=== PATIENT | male | born 1945 | race Caucasian/White ===

== ENCOUNTER → 2020-11-02 10:48 | Outpatient (BNVA) | payer MEDICARE, SELFPAY | PROVIDERS: PCP Family Medicine; Visit Provider Urology | DX: N40.1 Benign prostatic hyperplasia with lower urinary tract symptoms (principal); N28.1 Cyst of kidney, acquired; N13.8 Other obstructive and reflux uropathy; N52.01 Erectile 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; R33.9 Retention of urine, unspecified | CPT/HCPCS: 81002; 99212 ==

== ENCOUNTER 2020-11-10 10:59 | Outpatient (REF) | payer MEDICARE, SELFPAY ==
--- NOTE | ~2020-11-10 | US_ITS ---
EXAMINATION: US RETROPERITONEAL LIMITED (RENAL ONLY) CLINICAL INFORMATION: Calculus of kidney. COMPARISON: None TECHNIQUE: Real-time imaging of the kidneys. FINDINGS: RIGHT KIDNEY: 13.0 x 6.1 x 4.2 cm (SAG x AP x TRV). The kidney is normal in size, contour, and echogenicity. Renal cortical thickness is normal. No renal calculi or hydronephrosis. There is an anechoic cyst in lower pole measuring 6.8 x 7.8 x 7.8 cm. LEFT KIDNEY: 13.5 x 6.3 x 5.0 cm (SAG x AP x TRV). The kidney is normal in size, contour, and echogenicity. Renal cortical thickness is normal. No calculi or focal parenchymal lesions. No hydronephrosis. US/US renal BI IMPRESSION: Anechoic cyst lower pole right kidney. There are no echogenic stones, cysts or hydronephrosis in either kidney.
== END 2020-11-10 11:00 | disposition home or self-care (01) ==
LOC: HO.US 10:59
PROVIDERS: Visit Provider Urology
DX: N28.1 Cyst of kidney, acquired (principal); N20.0 Calculus of kidney
CPT/HCPCS: 76775

== ENCOUNTER → 2020-12-06 08:52 | Outpatient (BNVA) | payer MEDICARE, SELFPAY | PROVIDERS: PCP Family Medicine; Visit Provider Urology | DX: R39.15 Urgency of urination (principal); N28.1 Cyst of kidney, acquired; N40.1 Benign prostatic hyperplasia with lower urinary tract symptoms; R33.9 Retention of urine, unspecified | CPT/HCPCS: 52000; 99212 ==

== ENCOUNTER → 2021-08-17 11:37 | Outpatient (BNVA) | payer MEDICARE, SELFPAY | PROVIDERS: PCP Family Medicine; Visit Provider Urology | DX: N40.1 Benign prostatic hyperplasia with lower urinary tract symptoms (principal); N13.8 Other obstructive and reflux uropathy; N28.1 Cyst of kidney, acquired; N52.01 Erectile 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; R39.15 Urgency of urination; L29.1 Pruritus scroti | CPT/HCPCS: 51798; 99212 ==

== ENCOUNTER 2022-08-06 11:08 | Outpatient (REF) | payer MEDICARE, SELFPAY ==
--- NOTE | ~2022-08-06 | US_ITS ---
EXAMINATION: US RETROPERITONEAL LIMITED (RENAL ONLY) CLINICAL INFORMATION: Cyst of kidney, acquired. COMPARISON: Ultrasound retroperitoneal limited (renal only) 11/10/2020. TECHNIQUE: Real-time imaging of the kidneys. FINDINGS: RIGHT KIDNEY: 12.2 x 5.6 x 5.0 cm (SAG x AP x TRV). The kidney is normal in size, contour, and echogenicity. Renal cortical thickness is normal. No hydronephrosis. Redemonstration of a 7.4 x 5.8 x 8.1 cm cystic lesion in the lower pole, previously 7.8 x 6.8 x 7.8 on 11/10/2020. This lesion demonstrates peripheral nodularities that are for the vast majority hyperechoic, favoring to represent the presence of calcifications. There are also some thickened peripheral septations. LEFT KIDNEY: 12.9 x 5.7 x 5.1 cm (SAG x AP x TRV). The kidney is normal in size, contour, and echogenicity. Renal cortical thickness is normal. No focal parenchymal lesions or hydronephrosis. There is a 0.2 cm nonobstructive calculus in the lower pole. US/US renal BI IMPRESSION: 1. Redemonstration of a 8.1 cm cystic lesion in the lower pole of the right kidney with peripheral calcifications and thickened septations. This lesion is indeterminant and further characterization with a dynamic abdominal MRI is recommended to evaluate for the presence of solid/enhancing components. 2. Nonobstructive 0.2 cm calculus in the lower pole of the left kidney.
== END 2022-08-06 11:09 | disposition home or self-care (01) ==
LOC: HO.US 11:08
PROVIDERS: Visit Provider Urology
DX: N28.1 Cyst of kidney, acquired (principal)
CPT/HCPCS: 76775

== ENCOUNTER → 2022-08-29 08:47 | Outpatient (BNVA) | payer MEDICARE, SELFPAY | PROVIDERS: PCP Family Medicine; Visit Provider Urology | DX: N40.1 Benign prostatic hyperplasia with lower urinary tract symptoms (principal); N13.8 Other obstructive and reflux uropathy; R39.15 Urgency of urination; N52.01 Erectile 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; N28.1 Cyst of kidney, acquired | CPT/HCPCS: 51798; 99212 ==

== ENCOUNTER 2023-05-10 13:53 | Outpatient (AMB) | payer MEDICARE, SELFPAY ==
--- NOTE | 2023-05-10 13:55 | A.OFFVIS_ITS ---
Intake Intake Visit Reasons: 6m follow up Intake Note: Patient is present for Follow Up Urology Med: Dutasteride, Sildenafil, Tolterodine Antibiotic Allergy:none Blood Thinner: None Pharmacy: [facility] PVR: 0 Allergies No Known Allergies Allergy (Verified 05/10/23 13:58) Medication List - Last Reconciled 05/10/23 by Hany Hayes MD atropine 1% 1 drp ophthalmic (eye) BID bisoprolol-hydrochlorothiazide 2.5-6.25 mg 1 tab PO QAM brimonidine-timolol 0.2-0.5 % drps ophthalmic (eye) clotrimazole-betamethasone 1-0.05 % 1 appl topical BID 2 weeks dutasteride 0.5 mg PO DAILY ipratropium bromide 2 sprays intranasal BID ketorolac 0.5% 1 drp ophthalmic-Right TID moxifloxacin 0.5% 1 drp ophthalmic (eye) TID prednisolone acetate 1% 1 drp ophthalmic-Right TID sildenafil 100 mg PO ONCE PRN 30 days tolterodine ER 2 mg PO DAILY 90 days HPI HPI Comments History of Present Illness Details Mckay Frank is a very pleasant male. He is a patient of Dr. Horvath. They are seen in the office today for the following urologic conditions. - lower urinary tract symptoms - overactive bladder dry - scrotal itching Continue therapy tolterodine 2 mg daily with dutasteride - stable bladder per formance Erectile dysfunction Viagra prescription provided Stable right renal cyst on ultrasound Lower Urinary Tract Symptoms: Current visit is for further evaluation of, lower urinary tract symptoms, predominate obstructive symptoms. Current treatment includes medication none Prior treatments include medication, alpha blockers, antimuscarinics - no long term care administrator impact , myrbetriq/mirabegron - not helpful, prior 5 AR dutasteride - 3m antibiotic suppression was beneficial 11/24 Prostate Symptom Score Moderate (9-19), Bother 3. Symptoms include incomplete emptying, weak stream, nocturia (>2), and are stable. Results from testing include cystoscopy high riding bladder neck (median bar) May 2016 large bladder capacity renal/bladder us Yes 7cm renal cyst complex PVR 255 high pvr on antimuscarinic Prior Prostate Score mild. PSA 03/26 0.2 Prostate volume < 30 gm. Associated conditions CAD No CVA No diabetes No elevated PSA No erectile dysfunction Yes Testing at next visit will include Prostate Symptom Score, uroflow, bladder scan. Renal lesion: Yearly US for surveillance. They present for reevaluation of renal mass characterized as , right side, complex cyst. The renal mass was diagnosed incidentally. Imaging included Jun 2016 , a CT (computed tomography) scan of the abdomen/pelvis, showing class II cyst(s) F - 8.6cm right, non enhancing. 06/25 , a renal ultrasound, showing class II cyst(s), >5.9 cm in size right 04/27, a renal ultrasound, stable right renal cyst - 11/27 - right cyst 8 cm stable - 07/31 right renal cyst 8 cm stable Prior treatment(s) included surveillance. Follow up imaging to continue Erectile dysfunction Sildenafil [facility] Medical History BPH (benign prostatic hyperplasia) Erectile dysfunction Nocturia Prostatism Scrotal itching Skin cancer Urinary urgency Surgical History History of surgery of head Social History Alcohol intake: current Alcohol intake frequency: 0-2 drinks per day Alcohol type: beer Patient Tobacco Use Status: Former Tobacco user Tobacco use type: Cigarette service: Yes Current occupational status: retired Review of Systems Const Denies chills and Denies fever(s) Card Reports no additional complaints and Denies syncope Resp Denies cough GI Denies abdominal pain and Denies heartburn Reports as per HPI and Denies change in libido Neuro Denies syncope Psych Denies change in libido Endo Denies change in libido Physical Exam Const General: cooperative, healthy appearing, comfortable and no acute distress Orientation/consciousness: patient oriented x3 HEENT Face and sinus: Yes normal facial exam Mouth: moist mucous membranes Neck Neck: Yes normal visual inspection, Yes full ROM and Yes trachea midline Chest Chest palpation & inspection: normal inspection of the chest Resp Effort & Inspection: normal respiratory effort, able to speak in complete sentences and no respiratory distress GI Inspection: Yes normal to inspection Back/Spine/Pelvis Cervical Spine: normal cervical lordosis Thoracic/Lumbar Spine: thoracic and lumbar spine normal to inspection Skin General skin exam: no rashes or lesions noted Neuro General: patient oriented x3, gait normal, tone normal and moves all extremities Extrem General: Yes normal to inspection and Yes capillary refill normal Office Procedures Post Void Residual Post Residual Void Post Void Residual (PVR): 0 [id number] Void Residual by ultrasound Results AMB Urinalysis, Automated UA Leukoctes 15 Erick/uL Last Edit by Carmen Barillas, [facility] on 05/10/23 14:06 UA Nitrite Negative Last Edit by Carmen Barillas A on 05/10/23 14:06 UA Urobilinogen 0.2 mg/dL Last Edit by Carmen Barillas A on 05/10/23 14:0 6 UA Protein 15 mg/dL Last Edit by Carmen Barillas A on 05/10/23 14:06 UA pH 6.0 Last Edit by Carmen Barillas A on 05/10/23 14:06 UA Blood 0 Ike/uL Last Edit by Carmen Barillas [facility] on 05/10/23 14:06 UA Specific [place] 1.020 Last Edit by Carmen Barillas [facility] on 05/10/23 14: 06 UA Ketone Negative Last Edit by Carmen Barillas, A on 05/10/23 14:06 UA Bilirubin 0 mg/dL Last Edit by Carmen Barillas [facility] on 05/10/23 14:06 UA Glucose 0 mg/dL Last Edit by Carmen Barillas, [facility] on 05/10/23 14:06 Results Reviewed Results Reviewed: Laboratory Last Values Urine pH (Auto) 6.0 05/10/23 13:58 Specific [place] (Auto) 1.020 05/10/23 13:58 Urine Protein (Auto) 15 mg/dL 05/10/23 13:58 Glucose (UA)(Auto) 0 mg/dL 05/10/23 13:58 Urine Ketones (Auto) Negative 05/10/23 13:58 Urine Blood (Auto) 0 Ike/uL 05/10/23 13:58 Urine Nitrite (Auto) Negative 05/10/23 13:58 Urine Bilirubin (Auto) 0 mg/dL 05/10/23 13:58 Urine Urobilinogen (Auto) 0.2 mg/dL 05/10/23 13:58 Leukocyte Esterase (Auto) 15 Erick/uL 05/10/23 13:58 Assessment & Plan Assessment & Plan (1) Urinary urgency: Code(s): R39.15 - Urgency of urination (2) Erectile 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: Code(s): N52.01 - Erectile 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 (3) Incomplete emptying of bladder due to benign prostatic hyperplasia: Code(s): N40.1 - Benign prostatic hyperplasia with lower urinary tract symptoms; R33.9 - Retention of urine, unspecified Plan Six month follow-up Orders: Orders AMB Urinalysis Automated Today Z13.9 - Encounter for screening, unspecified AMB Post Void Residual by ultrasound Today N40.1 - Benign prostatic hyperplasia with lower urinary tract symptoms, R33.9 - Retention of urine, unspecified Medications: Changed From tolterodine ER 2 mg PO DAILY 30 days 30 caps 2RF N31.8 - Other neuromuscular dysfunction of bladder, R39.15 - Urgency of urination To tolterodine ER 2 mg PO DAILY 90 days 90 caps 1RF N31.8 - Other neuromuscular dysfunction of bladder, R39.15 - Urgency of urination From dutasteride 0.5 mg PO DAILY To dutasteride 0.5 mg PO DAILY 90 days 90 caps 1RF Patient Instructions: Imaging studies, laboratory and physical exam results were discussed and reviewed in detail. No major barriers to patient understanding were identified. An opportunity to ask questions regarding the treatment plan was provided. All questions were answered. The patient expressed understanding and agreement with the above treatment plan. The patient is aware they should contact our office by phone for worsening of their current condition or the appearance of new urologic symptoms. Compliance is encouraged with any medications and followup testing that is ordered. It is a privilege to participate in the urologic care of your patient. If you have any questions or concerns regarding treatment for the above conditions, or other urologic issues, please do not hesitate to contact me. The office telephone contact is [phone]. This note is constructed using voice recognition software. While every effort has been made to ensure accuracy aerial crop duster errors may have been included. Yours sincerely, Dr Hany Hayes MD, [facility] - Urology Providers of Expert, Compassionate Care for the Genitourinary System Coding Level of Care Code Est Pt Level 3 (83209) Diagnoses Urinary urgency R39.15 Erectile 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 N52.01 Incomplete emptying of bladder due to benign prostatic hyperplasia N40.1; R33.9 CPT Codes Post Residual Void - PVR CPT Code: 47396-Frpv Void Residual by ultrasound ([id number])
== END 2023-05-10 14:17 | disposition home or self-care (01) ==
PROVIDERS: PCP Family Medicine; Visit Provider Urology
DX: N40.1 Benign prostatic hyperplasia with lower urinary tract symptoms (principal); R39.15 Urgency of urination; N52.01 Erectile 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; R33.9 Retention of urine, unspecified; Z13.9 Encounter for screening, unspecified
CPT/HCPCS: 99213

== ENCOUNTER → 2023-05-10 13:53 | Outpatient (BNVA) | payer MEDICARE, SELFPAY | PROVIDERS: Visit Provider Urology | DX: N40.1 Benign prostatic hyperplasia with lower urinary tract symptoms (principal); R39.15 Urgency of urination; R33.9 Retention of urine, unspecified; N52.01 Erectile 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 | CPT/HCPCS: 51798; 81003; 99212 ==

== ENCOUNTER 2023-11-12 09:22 | Outpatient (AMB) | payer MEDICARE, SELFPAY ==
--- NOTE | 2023-11-12 09:24 | MHC.OFFVIS ---
Intake Intake Visit Reasons: 6m follow up(confirmed) Intake Note: Patient is Present for Telephone Follow Up Urology Med: Dutasteride (Patient states he is not taking tolterodine or sildenafil) Antibiotic Allergy:None Blood Thinner: None Confirmed Pharmacy: [facility] Reports no new medications Allergies No Known Allergies Allergy (Verified 05/10/23 13:58) Medication List - Last Reconciled 11/12/23 by Hany Hayes MD atropine 1% 1 drp ophthalmic (eye) BID bisoprolol-hydrochlorothiazide 2.5-6.25 mg 1 tab PO QAM brimonidine-timolol 0.2-0.5 % drps ophthalmic (eye) clotrimazole-betamethasone 1-0.05 % 1 appl topical BID 2 weeks dutasteride 0.5 mg PO DAILY 90 days ipratropium bromide 2 sprays intranasal BID ketorolac 0.5% 1 drp ophthalmic-Right TID moxifloxacin 0.5% 1 drp ophthalmic (eye) TID prednisolone acetate 1% 1 drp ophthalmic-Right TID sildenafil 100 mg PO ONCE PRN 30 days tolterodine ER 2 mg PO DAILY 90 days HPI HPI Comments History of Present Illness Details Mckay Frank is a very pleasant male. He is a patient of Dr. Horvath. They are seen in the office today for the following urologic conditions. - lower urinary tract symptoms - overactive bladder dry - scrotal itching Telemedicine Evaluation 15 min Consultation [employer] Meseret Video attempted Continue therapy tolterodine 2 mg daily with dutasteride - stable bladder performance Occasional leakage Prescription refills Six-month follow-up PVR office Erectile dysfunction Viagra prescription provided Stable right renal cyst on ultrasound Lower Urinary Tract Symptoms: Current visit is for further evaluation of, lower urinary tract symptoms, predominate obstructive symptoms. Current treatment includes medication none Prior treatments include medication, alpha blockers, antimuscarinics - no terminologist impact , myrbetriq/mirabegron - not helpful, prior 5 AR dutasteride - 3m antibiotic suppression was beneficial 11/24 Prostate Symptom Score Moderate (9-19), Bother 3. Symptoms include incomplete emptying, weak stream, nocturia (>2), and are stable. Results from testing include cystoscopy high riding bladder neck (median bar) May 2016 large bladder capacity renal/bladder us Yes 7cm renal cyst complex PVR 255 high pvr on antimuscarinic Prior Prostate Score mild. PSA 03/26 0.2 Prostate volume < 30 gm. Associated conditions CAD No CVA No diabetes No elevated PSA No erectile dysfunction Yes Renal lesion: Yearly US for surveillance. They present for reevaluation of renal mass characterized as , right side, complex cyst. The renal mass was diagnosed incidentally. Imaging included Jun 2016 , a CT (computed tomography) scan of the abdomen/pelvis, showing class II cyst(s) F - 8.6cm right, non enhancing. 06/25 , a renal ultrasound, showing class II cyst(s), >5.9 cm in size right 04/27, a renal ultrasound, stable right renal cyst - 11/27 - right cyst 8 cm stable - 07/31 right renal cyst 8 cm stable Prior treatment(s) included surveillance. Follow up imaging to continue Erectile dysfunction Sildenafil [facility] Medical History Skin cancer BPH (benign prostatic hyperplasia) Erectile dysfunction Prostatism Urinary urgency Nocturia Scrotal itching Surgical History History of surgery of head Social History Alcohol intake: current Alcohol intake frequency: 0-2 drinks per day Alcohol type: beer Patient Tobacco Use Status: Former Tobacco user Tobacco use type: Cigarette service: Yes Current occupational status: retired Review of Systems Const All systems reviewed & are unremarkable except as noted in HPI and below Reports no additional complaints Resp Reports no additional complaints GI Reports no additional complaints Reports as per HPI Musc Reports no additional complaints Physical Exam Telemedicine evaluation Appropriate responses Regular breathing rate and rhythm HEENT Head: Yes normal to inspection Ears: hearing grossly normal bilaterally Eyes General: appearance normal, both eyes and all related structures Neck Neck: Yes normal visual inspection Chest Chest palpation & inspection: normal inspection of the chest Resp Effort & Inspection: normal respiratory effort and able to speak in complete sentences Assessment & Plan Assessment & Plan (1) Urinary urgency: Code(s): R39.15 - Urgency of urination (2) BPH w urinary obs/LUTS: Code(s): N40.1 - Benign prostatic hyperplasia with lower urinary tract symptoms; N13.8 - Other obstructive and reflux uropathy Plan Six month follow-up PVR May benefit from bethanechol Medications: Refilled tolterodine ER 2 mg PO DAILY 90 caps 1RF 90 days N31.8 - Other neuromuscular dysfunction of bladder, R39.15 - Urgency of urination dutasteride 0.5 mg PO DAILY 90 caps 1RF 90 days Patient Instructions: Imaging studies, laboratory and physical exam results were discussed and reviewed in detail. No major barriers to patient understanding were identified. An opportunity to ask questions regarding the treatment plan was provided. All questions were answered. The patient expressed understanding and agreement with the above treatment plan. The patient is aware they should contact our office by phone for worsening of their current condition or the appearance of new urologic symptoms. Compliance is encouraged with any medications and followup testing that is ordered. It is a privilege to participate in the urologic care of your patient. If you have any questions or concerns regarding treatment for the above conditions, or other urologic issues, please do not hesitate to contact me. The office telephone contact is [phone]. This note is constructed using voice recognition software. While every effort has been made to ensure accuracy sample tester grinder errors may have been included. Yours sincerely, Dr Hany Hayes MD, [facility] - Urology Providers of Expert, Compassionate Care for the Genitourinary System Telehealth Telehealth Location of provider rendering services: practice address Location of patient: address on file Patient Identification confirmed using: Name, : Yes Telehealth method: video Patient verbally consented to treatment: Yes Patient verbally consented to billing insurance company: Yes Patient informed of any privacy concerns related to visit: Yes Coding Level of Care Code Tele Est Pt Level 3 (92588) Diagnoses Urinary urgency R39.15 BPH w urinary obs/LUTS N40.1; N13.8
== END 2023-11-12 10:32 | disposition home or self-care (01) ==
LOC: HO.HUSH 09:23
PROVIDERS: PCP Family Medicine; Visit Provider Urology
DX: R39.15 Urgency of urination (principal); N40.1 Benign prostatic hyperplasia with lower urinary tract symptoms; N13.8 Other obstructive and reflux uropathy
CPT/HCPCS: 99213

== ENCOUNTER → 2023-11-12 09:22 | Outpatient (BNVA) | payer MEDICARE, SELFPAY | PROVIDERS: PCP Family Medicine; Visit Provider Urology ==

== ENCOUNTER 2024-05-14 10:26 | Outpatient (AMB) | payer MEDICARE, SELFPAY ==
--- NOTE | 2024-05-14 10:56 | MHC.OFFVIS ---
Intake Visit Reasons: 6m/PVR Intake Note: Patient is Present for PVR Urology Med: Sildenafil, Dutasteride (Pt no longer on tolterodine) Antibiotic Allergy: None Blood Thinner: None Last PVR: 0ml Todays PVR: 42mls Patient reports that he is no longer taking tolterodine, he is only taking both Dutasteride and Sildenafil Portrait Studio Photographer Required: No Accompanied by: Self / Same As Patient Allergies No Known Allergies Allergy (Verified 05/14/24 11:09) HPI Comments Details: Mckay Frank is a very pleasant male. He is a patient of Dr. Horvath. They are seen in the office today for the following urologic conditions. - lower urinary tract symptoms - overactive bladder dry - scrotal itching Six-month follow-up Continue therapy tolterodine 2 mg daily with dutasteride - stable bladder performance PVR 40 cc Refill dutasteride Has come off tolterodine Would like refill on clotrimazole cream Erectile dysfunction Viagra prescription provided Stable right renal cyst on ultrasound Lower Urinary Tract Symptoms: Current visit is for further evaluation of, lower urinary tract symptoms, predominate obstructive symptoms. Current treatment includes medication none Prior treatments include medication, alpha blockers, antimuscarinics - no retirement impact , myrbetriq/mirabegron - not helpful, prior 5 AR dutasteride - 3m antibiotic suppression was beneficial 11/24 Prostate Symptom Score Moderate (9-19), Bother 3. Symptoms include incomplete emptying, weak stream, nocturia (>2), and are stable. Results from testing include cystoscopy high riding bladder neck (median bar) May 2016 large bladder capacity renal/bladder us Yes 7cm renal cyst complex PVR 255 high pvr on antimuscarinic Prior Prostate Score mild. PSA 03/26 0.2 Prostate volume < 30 gm. Associated conditions CAD No CVA No diabetes No elevated PSA No erectile dysfunction Yes Renal lesion: Yearly US for surveillance. They present for reevaluation of renal mass characterized as , right side, complex cyst. The renal mass was diagnosed incidentally. Imaging included Jun 2016 , a CT (computed tomography) scan of the abdomen/pelvis, showing class II cyst(s) F - 8.6cm right, non enhancing. 06/25 , a renal ultrasound, showing class II cyst(s), >5.9 cm in size right 04/27, a renal ultrasound, stable right renal cyst - 11/27 - right cyst 8 cm stable - 07/31 right renal cyst 8 cm stable Prior treatment(s) included surveillance. Follow up imaging to continue Erectile dysfunction Sildenafil PFSH Medical History Skin cancer BPH (benign prostatic hyperplasia) Erectile dysfunction Prostatism Urinary urgency Nocturia Scrotal itching Surgical History History of surgery of head Social History Alcohol intake: current Alcohol intake frequency: 0-2 drinks per day Alcohol type: beer Patient Tobacco Use Status: Former Tobacco user Tobacco use type: Cigarette service: Yes Current occupational status: retired Review of Systems Const Denies chills and Denies fever(s) Card Reports no additional complaints and Denies syncope Resp Denies cough GI Denies abdominal pain and Denies heartburn Reports as per HPI and Denies change in libido Neuro Denies syncope Psych Denies change in libido Endo Denies change in libido Physical Exam Const General: cooperative, healthy appearing, comfortable and no acute distress Orientation/consciousness: patient oriented x3 HEENT Face and sinus: Yes normal facial exam Mouth: moist mucous membranes Neck Neck: Yes normal visual inspection, Yes full ROM and Yes trachea midline Chest Chest palpation & inspection: normal inspection of the chest Resp Effort & Inspection: normal respiratory effort, able to speak in complete sentences and no respiratory distress GI Inspection: Yes normal to inspection Back/Spine/Pelvis Cervical Spine: normal cervical lordosis Thoracic/Lumbar Spine: thoracic and lumbar spine normal to inspection Skin General skin exam: no rashes or lesions noted Neuro General: patient oriented x3, gait normal, tone normal and moves all extremities Extrem General: Yes normal to inspection and Yes capillary refill normal Office Procedures Post Void Residual Post Residual Void Post Void Residual (PVR): 42 [id number] Void Residual by ultrasound Assessment & Plan Assessment & Plan (1) Urinary urgency: Code(s): R39.15 - Urgency of urination Category: Medical (2) Erectile 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: Code(s): N52.01 - Erectile 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 Category: Medical (3) BPH w urinary obs/LUTS: Code(s): N40.1 - Benign prostatic hyperplasia with lower urinary tract symptoms; N13.8 - Other obstructive and reflux uropathy Category: Medical Plan Six-month follow-up tele Orders: Orders AMB Post Void Residual by ultrasound Today R39.15 - Urgency of urination Medications: Refilled clotrimazole-betamethasone 1-0.05 % 1 appl topical BID 2 weeks 45 grams 1RF L29.1 - Pruritus scroti dutasteride 0.5 mg PO DAILY 90 days 90 caps 1RF R39.15 - Urgency of urination Patient Instructions: Imaging studies, laboratory and physical exam results were discussed and reviewed in detail. No major barriers to patient understanding were identified. An opportunity to ask questions regarding the treatment plan was provided. All questions were answered. The patient expressed understanding and agreement with the above treatment plan. The patient is aware they should contact our office by phone for worsening of their current condition or the appearance of new urologic symptoms. Compliance is encouraged with any medications and followup testing that is ordered. It is a privilege to participate in the urologic care of your patient. If you have any questions or concerns regarding treatment for the above conditions, or other urologic issues, please do not hesitate to contact me. The office telephone contact is [phone]. This note is constructed using voice recognition software. While every effort has been made to ensure accuracy marketing production specialist errors may have been included. Yours sincerely, Dr Hany Hayse MD, [facility] - Urology Providers of Expert, Compassionate Care for the Genitourinary System Coding Level of Care Code Est Pt Level 4 (15532) Diagnoses Urinary urgency R39.15 Erectile 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 N52.01 BPH w urinary obs/LUTS N40.1; N13.8 CPT Codes Post Residual Void - PVR CPT Code: 86247-Hkol Void Residual by ultrasound ([id number])
== END 2024-05-14 11:27 | disposition home or self-care (01) ==
LOC: HO.HUSH 10:26
PROVIDERS: PCP Nurse Practitioner Family; Visit Provider Urology
DX: N40.1 Benign prostatic hyperplasia with lower urinary tract symptoms (principal); R39.15 Urgency of urination; N52.01 Erectile 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; N13.8 Other obstructive and reflux uropathy
CPT/HCPCS: 99214

== ENCOUNTER → 2024-05-14 10:26 | Outpatient (BNVA) | payer MEDICARE, SELFPAY | PROVIDERS: PCP Nurse Practitioner Family; Visit Provider Urology | DX: N40.1 Benign prostatic hyperplasia with lower urinary tract symptoms (principal); N13.8 Other obstructive and reflux uropathy; N52.01 Erectile 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; R39.15 Urgency of urination | CPT/HCPCS: 51798; 99212 ==

== ENCOUNTER 2024-11-11 10:39 | Outpatient (AMB) | payer MEDICARE, SELFPAY ==
--- NOTE | 2024-11-11 10:40 | A.OFFVIS_ITS ---
Intake Visit Reasons: 4M/ERECTILE DYS/BPH(SET) Intake Note: Patient is present for 4M ERECTILE DYS/BPH Urology Medication:TOLTERODINE,DUTASTERIDE,CLOTHRIMAZOLE Antibiotic Allergy:NONE Blood Thinner:NONE Softball Umpire Required: No Allergies No Known Allergies Allergy (Verified 11/11/24 10:41) HPI Comments Details: Mckay Frank is a very pleasant male. He is a patient of Dr. Horvath. They are seen in the office today for the following urologic conditions. - lower urinary tract symptoms - overactive bladder dry - scrotal itching Telemedicine Evaluation 15 min Consultation Solar[employer] Video Continue therapy with dutasteride - stable bladder performance - prescription provided Prior PVR 40 cc Had clotrimazole for balanitis - was effective had been administered as 3 x 15 g tubes Erectile dysfunction Viagra prescription provided Stable right renal cyst on ultrasound Lower Urinary Tract Symptoms: Current visit is for further evaluation of, lower urinary tract symptoms, predominate obstructive symptoms. Current treatment includes medication none Prior treatments include medication, alpha blockers, antimuscarinics - no residential impact , myrbetriq/mirabegron - not helpful, prior 5 AR dutasteride - 3m antibiotic suppression was beneficial 11/24 Prostate Symptom Score Moderate (9-19), Bother 3. Symptoms include incomplete emptying, weak stream, nocturia (>2), and are stable. Results from testing include cystoscopy high riding bladder neck (median bar) May 2016 large bladder capacity renal/bladder us Yes 7cm renal cyst complex PVR 255 high pvr on antimuscarinic Prior Prostate Score mild. PSA 03/26 0.2 Prostate volume < 30 gm Renal lesion: Yearly US for surveillance. They present for reevaluation of renal mass characterized as , right side, complex cyst. The renal mass was diagnosed incidentally. Imaging included Jun 2016 , a CT (computed tomography) scan of the abdomen/pelvis, showing class II cyst(s) F - 8.6cm right, non enhancing. 06/25 , a renal ultrasound, showing class II cyst(s), >5.9 cm in size right 04/27, a renal ultrasound, stable right renal cyst - 11/27 - right cyst 8 cm stable - 07/31 right renal cyst 8 cm stable Prior treatment(s) included surveillance. Follow up imaging to continue Erectile dysfunction Sildenafil [facility] Medical History Skin cancer BPH (benign prostatic hyperplasia) Erectile dysfunction Prostatism Urinary urgency Nocturia Scrotal itching Surgical History History of surgery of head Social History Alcohol intake: current Alcohol intake frequency: 0-2 drinks per day Alcohol type: beer Patient Tobacco Use Status: Former Tobacco user Tobacco use type: Cigarette service: Yes Current occupational status: retired Review of Systems Const All systems reviewed & are unremarkable except as noted in HPI and below Reports no additional complaints Resp Reports no additional complaints GI Reports no additional complaints Reports as per HPI Musc Reports no additional complaints Physical Exam Telemedicine evaluation Appropriate responses Regular breathing rate and rhythm HEENT Head: Yes normal to inspection Ears: hearing grossly normal bilaterally Eyes General: appearance normal, both eyes and all related structures Neck Neck: Yes normal visual inspection Chest Chest palpation & inspection: normal inspection of the chest Resp Effort & Inspection: normal respiratory effort and able to speak in complete sentences Telehealth Telehealth Telehealth Platform: Smarp Location of provider rendering services: practice address Location of patient: address on file Patient Identification confirmed using: Name, : Yes Telehealth method: video Patient verbally consented to treatment: Yes Patient verbally consented to billing insurance company: Yes Patient informed of any privacy concerns related to visit: Yes Minutes spent on Phone/Video with Pt.: 15 Assessment & Plan Assessment & Plan (1) BPH w urinary obs/LUTS: Code(s): N40.1 - Benign prostatic hyperplasia with lower urinary tract symptoms; N13.8 - Other obstructive and reflux uropathy Category: Medical (2) Urinary urgency: Code(s): R39.15 - Urgency of urination Category: Medical (3) Balanitis: Code(s): N48.1 - Balanitis Category: Medical Plan Six-month follow-up office PVR Medications: Refilled dutasteride 0.5 mg PO DAILY 90 days 90 caps 1RF R39.15 - Urgency of urination Discontinued tolterodine ER Discontinued Reason: Patient Completed Course 2 mg PO DAILY 90 days 90 caps 1RF N31.8 - Other neuromuscular dysfunction of bladder, R39.15 - Urgency of urination Patient Instructions: This note is constructed using voice recognition software. While every effort has been made to ensure accuracy director of development and marketing errors may have been included. Imaging studies, laboratory and physical exam results were discussed and reviewed in detail. No major barriers to patient understanding were identified. An opportunity to ask questions regarding the treatment plan was provided. All questions were answered. The patient expressed understanding and agreement with the above treatment plan. The patient is aware they should contact our office by phone for worsening of their current condition or the appearance of new urologic symptoms. Compliance is encouraged with any medications and followup testing that is ordered. It is a privilege to participate in the urologic care of your patient. If you have any questions or concerns regarding treatment for the above conditions, or other urologic issues, please do not hesitate to contact me. The office telephone contact is [phone]. Sincerely, Dr Hany Hayes MD, [facility] - Urology Compassionate Specialist Care for the Genitourinary System Coding Level of Care Code Tele Est Pt Level 3 (74999) Complex EM visit Add On G2211 Diagnoses BPH w urinary obs/LUTS N40.1; N13.8 Urinary urgency R39.15 Balanitis N48.1
--- OUTSIDE RECORDS SUMMARY | 2024-11-11 12:42 | XMS_ITS | Encounter Summary ---
Author Organization [facility] Address [address] [place] [id number] Care Team Providers Care Lens Grinder And Polisher Name Role Phone Unavailable Primary Care Provider Unavailabl e Encounter Details Date Type Department Care Team (Latest Contact Info) Description 09/13/[facility] [address] [place] [address] [address] [place] [address] Nate Doran PA-C [address] [place] [id number] Encounter for laboratory testing for COVID-19 virus Social History Tobacco Use Types Packs/Day Years Used Date Smoking Tobacco: Never Assessed Sex and Gender Information Value Date Recorded Sex Assigned at Not on file Gender Identity Not on file Sexual Orientation Not on file documented as of this encounter Plan of Treatment Not on file documented as of this encounter Procedures Procedure Name Priority Date/Time Associated Diagnosis Comments COVID-19 (SARS-COV-2) - [facility] Routine 09/13/2020 11:16 AM EST Encounter for laboratory testing for COVID-19 virus [ICD-10-CM] documented in this encounter Results * COVID-19 (SARS-COV-2) (SEMA4) (09/13/2020 11:16 AM EST) COVID-19 RT-PCR NOT-DETEC MARIA G Not-Detec maria g 09/14/2020 6:12 PM EST [facility] Comment:Interpretation: The viral RNA was not detected, making the COVID-19 diagnosis less likely. Clinical correlation is highly recommended.Final report signed by Thai Fan, Ph.D., Laboratory DirectorTests performed at [facility] Nasopharyngeal swab / Unknown 09/13/2020 11:16 AM EST 09/13/2020 11:16 AM EST Narrative [facility] - 09/14/2020 6:12 PM EST Performed by [employer], [place] [address] [place] [id number], CLIA# [id number] and [place] License# [id number] Nate Doran PA-C MICROBIOLOGY - NERAL ORDERABLES [facility] documented in this encounter Visit Diagnoses Diagnosis Encounter for laboratory testing for COVID-19 virus documented in this encounter
--- OUTSIDE RECORDS SUMMARY | 2024-11-11 12:42 | XMS_ITS | Clinical Summary ---
Author Organization [facility] Address [address] [place] [address] Care Team Providers Care Nature Photographer Name Role Phone Unavailable Primary Care Provider Unavailabl e Social History Tobacco Use Types Packs/Day Years Used Date Smoking Tobacco: Never Assessed Sex and Gender Information Value Date Recorded Sex Assigned at Not on file Gender Identity Not on file Sexual Orientation Not on file Plan of Treatment Health Maintenance Due Date Last Done Comments DTaP/Tdap/Td Vaccines (1 - Tdap) 1962 Pneumococcal Vaccines 50+ (1 of 1 - PCV) 1993 Zoster (Shingles) Vaccine (1 of 2) 1993 RSV Vaccine 60 years and old er and Patients (1 - 1-dose 75+ series) 2018 Influenza Vaccine 04/09/2024 COVID-19 Vaccine (2023-2 5 season) 2024 Hepatitis B Vaccines Aged Out No long er eligible based on patient's age to complete this topic
== END 2024-11-11 11:10 | disposition home or self-care (01) ==
LOC: HO.HUSH 10:39
PROVIDERS: PCP Nurse Practitioner Family; Visit Provider Urology
DX: N40.1 Benign prostatic hyperplasia with lower urinary tract symptoms (principal); N13.8 Other obstructive and reflux uropathy; R39.15 Urgency of urination; N48.1 Balanitis
CPT/HCPCS: 99213; G2211

== ENCOUNTER → 2024-11-11 10:39 | Outpatient (BNVA) | payer MEDICARE, SELFPAY | PROVIDERS: PCP Nurse Practitioner Family; Visit Provider Urology ==

== ENCOUNTER 2025-08-12 09:06 | Outpatient (AMB) | payer MEDICARE, SELFPAY ==
--- NOTE | 2025-08-12 09:25 | MHC.OFFVIS ---
Intake Visit Reasons: follow up/PVR/UA SET Intake Note: Patient is present for 6 mo follow up Urology Medication:TOLTERODINE,CLOTHRIMAZOLE Antibiotic Allergy:NONE Blood Thinner:NONE NKDA PVR:113 mls Job Service Specialist Required: No Accompanied by: Self / Same As Patient Allergies No Known Allergies Allergy (Verified 08/12/25 09:41) HPI Comments Details: Mckay Frank is a very pleasant male. He is a patient of Dr. Horvath. They are seen in the office today for the following urologic conditions. - lower urinary tract symptoms - overactive bladder dry - scrotal itching Current PVR 113 Feels incomplete bladder emptying with hesitancy Occasional urge Previous cystoscopy in 2015 with high-riding bladder neck Suggest repeat Had clotrimazole for balanitis - was effective had been administered as 3 x 15 g tubes Erectile dysfunction Viagra prescription provided Stable right renal cyst on ultrasound Lower Urinary Tract Symptoms: Current visit is for further evaluation of, lower urinary tract symptoms, predominate obstructive symptoms. Current treatment includes medication none Prior treatments include medication, alpha blockers, antimuscarinics - no intermediate card tender impact , myrbetriq/mirabegron - not helpful, prior 5 AR dutasteride - 3m antibiotic suppression was beneficial 11/24 Prostate Symptom Score Moderate (9-19), Bother 3. Symptoms include incomplete emptying, weak stream, nocturia (>2), and are stable. Results from testing include cystoscopy high riding bladder neck (median bar) May 2016 large bladder capacity renal/bladder us Yes 7cm renal cyst complex PVR 255 high pvr on antimuscarinic Prior Prostate Score mild. PSA 03/26 0.2 Prostate volume < 30 gm Renal lesion: Yearly US for surveillance. They present for reevaluation of renal mass characterized as , right side, complex cyst. The renal mass was diagnosed incidentally. Imaging included Jun 2016 , a CT (computed tomography) scan of the abdomen/pelvis, showing class II cyst(s) F - 8.6cm right, non enhancing. 06/25 , a renal ultrasound, showing class II cyst(s), >5.9 cm in size right 04/27, a renal ultrasound, stable right renal cyst - 11/27 - right cyst 8 cm stable - 07/31 right renal cyst 8 cm stable Prior treatment(s) included surveillance. Follow up imaging to continue Erectile dysfunction Sildenafil [facility] Medical History Skin cancer BPH (benign prostatic hyperplasia) Erectile dysfunction Prostatism Urinary urgency Nocturia Scrotal itching Surgical History History of surgery of head Social History Alcohol intake: current Alcohol intake frequency: 0-2 drinks per day Alcohol type: beer Patient Tobacco Use Status: Former Tobacco user Tobacco use type: Cigarette service: Yes Current occupational status: retired Review of Systems Const Denies chills and Denies fever(s) Card Reports no additional complaints and Denies syncope Resp Denies cough GI Denies abdominal pain and Denies heartburn Reports as per HPI and Denies change in libido Neuro Denies syncope Psych Denies change in libido Endo Denies change in libido Physical Exam Const General: cooperative, healthy appearing, comfortable and no acute distress Orientation/consciousness: patient oriented x3 HEENT Face and sinus: Yes normal facial exam Mouth: moist mucous membranes Neck Neck: Yes normal visual inspection, Yes full ROM and Yes trachea midline Chest Chest palpation & inspection: normal inspection of the chest Resp Effort & Inspection: normal respiratory effort, able to speak in complete sentences and no respiratory distress GI Inspection: Yes normal to inspection Back/Spine/Pelvis Cervical Spine: normal cervical lordosis Thoracic/Lumbar Spine: thoracic and lumbar spine normal to inspection Skin General skin exam: no rashes or lesions noted Neuro General: patient oriented x3, gait normal, tone normal and moves all extremities Extrem General: Yes normal to inspection and Yes capillary refill normal Office Procedures Post Void Residual Post Residual Void Post Void Residual (PVR): 113 [id number] Void Residual by ultrasound Assessment & Plan Assessment & Plan (1) BPH w urinary obs/LUTS: Code(s): N40.1 - Benign prostatic hyperplasia with lower urinary tract symptoms; N13.8 - Other obstructive and reflux uropathy Category: Medical (2) Urinary urgency: Code(s): R39.15 - Urgency of urination Category: Medical Plan Cystoscopy, uroflow Orders: Orders AMB Post Void Residual by ultrasound Today N40.1 - Benign prostatic hyperplasia with lower urinary tract symptoms Patient Instructions: This note is constructed using voice recognition software. While every effort has been made to ensure accuracy software development project manager errors may have been included. Imaging studies, laboratory and physical exam results were discussed and reviewed in detail. No major barriers to patient understanding were identified. An opportunity to ask questions regarding the treatment plan was provided. All questions were answered. The patient expressed understanding and agreement with the above treatment plan. The patient is aware they should contact our office by phone for worsening of their current condition or the appearance of new urologic symptoms. Compliance is encouraged with any medications and followup testing that is ordered. It is a privilege to participate in the urologic care of your patient. If you have any questions or concerns regarding treatment for the above conditions, or other urologic issues, please do not hesitate to contact me. The office telephone contact is [phone]. Sincerely, Dr Hany Hayes MD, [facility] - Urology Compassionate Specialist Care for the Genitourinary System Coding Level of Care Code Est Pt Level 3 (08526) Complex visit Add On G2211 Diagnoses BPH w urinary obs/LUTS N40.1; N13.8 Urinary urgency R39.15 CPT Codes Post Residual Void - PVR CPT Code: 57248-Bfry Void Residual by ultrasound ([id number])
== END 2025-08-12 10:13 | disposition home or self-care (01) ==
LOC: HO.HUSH 09:06
PROVIDERS: PCP Nurse Practitioner Family; Visit Provider Urology
DX: N40.1 Benign prostatic hyperplasia with lower urinary tract symptoms (principal); N13.8 Other obstructive and reflux uropathy; R39.15 Urgency of urination
CPT/HCPCS: 99213; G2211

== ENCOUNTER → 2025-08-12 09:06 | Outpatient (BNVA) | payer MEDICARE, SELFPAY | PROVIDERS: PCP Nurse Practitioner Family; Visit Provider Urology | DX: N40.1 Benign prostatic hyperplasia with lower urinary tract symptoms (principal); N13.8 Other obstructive and reflux uropathy; R39.15 Urgency of urination | CPT/HCPCS: 51798; 99212 ==